=== PATIENT | female | born 1975 | race Caucasian/White ===

== ENCOUNTER 2018-11-03 12:54 | Emergency (ER) | payer OTHER ==
[~2018-11-03] VITALS: Ht 160 cm; Wt 81.8 kg
[~2018-11-03 12:54] MED LIST: IBUP-2071 PO
[2018-11-03 15:45] VITALS: BP 120/72
== END 2018-11-03 16:23 | disposition home or self-care (01) ==
LOC: EMS 12:57
DX: Z48.815 Encounter for surgical aftercare following surgery on the digestive system (principal); R03.0 Elevated blood-pressure reading, without diagnosis of hypertension; E78.00 Pure hypercholesterolemia, unspecified